=== PATIENT | female | born 1970 | race African-American/Black ===

== ENCOUNTER → 2017-05-03 | Outpatient (CLI) | payer OTHER ==
[~2017-05-03] MED LIST: ADVIL200 MG PO; ATIVAN0.5 MG PO; IBUPROFEN200 M1; LEVO-T25 MCG PO; LEXAPRO5 MG PO; NAPROSYN500 MG PO; NOHOMEMEDS; VALIUM5 MG PO; VITAMIN B 6 PO; VITAMIN D31000 UNIT PO; XANAX0.25 MG PO
== END | disposition home or self-care (01) ==
LOC: CDC 14:52
DX: Z01.810 Encounter for preprocedural cardiovascular examination (principal); R92.8 Other abnormal and inconclusive findings on diagnostic imaging of breast; R92.1 Mammographic calcification found on diagnostic imaging of breast; E66.01 Morbid (severe) obesity due to excess calories
CPT/HCPCS: 93000

== ENCOUNTER 2017-05-10 07:36 | Day surgery (SDC) | payer OTHER ==
[~2017-05-10] VITALS: Ht 157.5 cm; Wt 154.2 kg
[2017-05-10 08:20] VITALS: BP 137/64
[2017-05-10] MEDS ORDERED: NORCO 5/3251 TABLET PO (13:25)
[2017-05-10 14:13] VITALS: BP 140/74
[2017-05-10 14:55] VITALS: BP 135/99
== END 2017-05-10 15:05 | disposition home or self-care (01) ==
LOC: SDC
PROC: 0HBT0ZZ Excision of Right Breast, Open Approach (ICD-10-PCS; principal; 2017-05-10)
DX: N60.31 Fibrosclerosis of right breast (principal); N60.21 Fibroadenosis of right breast; Z80.3 Family history of malignant neoplasm of breast; E66.2 Morbid (severe) obesity with alveolar hypoventilation; Z68.44 Body mass index [BMI] 60.0-69.9, adult; D06.9 Carcinoma in situ of cervix, unspecified; Z80.49 Family history of malignant neoplasm of other genital organs; Z82.49 Family history of ischemic heart disease and other diseases of the circulatory system
CPT/HCPCS: 88307; J0330; J0690; J1100; J1885; J2250; J2405; J3010